=== PATIENT | male | born 1985 | race Caucasian/White ===

== ENCOUNTER 2017-07-23 16:52 | Emergency (ER) | payer OTHER ==
[~2017-07-23] VITALS: Ht 193 cm; Wt 121.3 kg
[2017-07-23 16:55] VITALS: TEMP 36.7; Ht 193 cm; Wt 121.3 kg
[2017-07-23] MEDS ORDERED: LOPERAMIDE HCL 2 MG CAP PO STA (18:13)
[2017-07-23] MEDS ORDERED: ONDANSETRON INJ 2 MG/ML 2 ML VIAL IV STA (18:13)
[2017-07-23] MEDS ORDERED: SODIUM CHLORIDE 0.9% 1000ML 1,000 ML IV STA (18:13)
--- NOTE | 2017-07-23 18:17 | EMERGENCY ROOM VISIT NOTE ---
History Report prepared by Khushi: Aurelio Rose Under the Supervision of: Dr. Pedro Robles M.D. First contact with patient: 18:07 Chief Complaint: SYNCOPE Stated Complaint: LIGHT HEADED, PASSING OUT, VOMITING Nursing Triage Summary: Pt ambulatory to triage stating he has passed out twice since yesterday. Diarrhea, vomiting. Epigastric pain. Denies previous hx of syncope. Denies cp. Mild SOB. History of Present Illness The patient is a 31 year old male who presents to the Emergency Room with complaints of multiple syncopal episodes that started yesterday morning. He states that he started having nausea, with episodes of vomiting and diarrhea that started 2 days ago. The patient says that he woke up yesterday morning for work, and around 0130, he was walking through his house and started to feel dizzy and passed out. He adds that this morning, he was walking through the parking lot going to work, and got dizzy and passed out again. The patient says that he has only passed out once before these episodes, and that was while he was in jail. He adds that he has been having a bit of upper abdominal pain. The patient denies any chest pain. He notes no known recent sick contacts with symptoms similar to these. He says that he was in jail for 2 years, so he is starting to eat real foods again, so perhaps eating hot dogs he thinks may have caused these symptoms, but he is not sure. He notes that he was seen at the [facility] yesterday, but did not have any testing done. Source of History: patient Onset: Yesterday morning Position: other (global) Symptom Intensity: twice Quality: other (syncope) Timing: other (episodes) Associated Symptoms: + LOC, + nausea, + vomiting, + abdominal pain, + diarrhea, No chest pain Note: Associated symptoms: Dizziness. Review of Systems See HPI for pertinent positives & negatives. A total of 10 systems reviewed and were otherwise negative. Past Medical & Surgical Medical Problems: (1) Arthritis Family History No pertinent family history Social History Smoking Status: Current Every Day Smoker Drug Use: none Occupation Status: employed Current/Historical Medications Scheduled Ondasetron Odt (Zofran Odt), 4 MG SL Q6H [Physiatric Med], 1 DOSE PO UD Allergies Coded Allergies: Acetaminophen (Unverified Allergy, Intermediate, ., 07/23/17) PT STATES BECAUSE OF A SURGERY HE CAN'T TAKE IT BECAUSE IT "MAKES HIM FLAIR UP" IN THE CHEST Physical Exam Vital Signs Date Time Temp Pulse Resp B/P (MAP) Pulse Ox O2 Delivery O2 Flow Rate FiO2 07/23/17 18:32 70 18 140/71 97 Room Air 07/23/17 18:25 65 07/23/17 16:55 36.7 87 20 153/100 95 Room Air Physical Exam GENERAL: Patient is in no acute distress. HEENT: No acute trauma, normocephalic atraumatic, mucous membranes moist, no nasal congestion, no scleral icterus. NECK: No stridor, no adenopathy, no meningismus, trachea is midline. LUNGS: Clear to auscultation bilaterally, no wheeze, no rhonchi, breath sounds equal. HEART: Without murmurs gallops or rubs, regular rate and rhythm. ABDOMEN: Soft, nontender, bowel sounds positive, no hernias, no peritonitis. EXTREMITIES: No cyanosis or edema, full range of motion of all the joints without pain or difficulty, no signs for acute trauma. NEUROLOGIC: Oriented x 3, no acute motor or sensory deficits, no focal weakness. SKIN: No rash, no jaundice, no diaphoresis. Medical Decision & Procedures ER Provider Diagnostic Interpretation: X-ray results as stated below per interpretation by me and the radiologist: ABDOMEN 2VIEW W/PA CHEST RTN CLINICAL HISTORY: 31 years-old Male presenting with pain, vomiting. TECHNIQUE: PA view of the chest and supine and upright views of the abdomen were obtained. COMPARISON: None. FINDINGS: Cardiomediastinal silhouette normal. Mildly prominent lung markings. No focal opacity. No large effusion or pneumothorax. Nonobstructive bowel gas pattern. No gross pneumoperitoneum. Calcification projects in the right lower quadrant, either bone island or appendicolith. No calcifications project over the kidneys or along the courses of the ureters allowing for bowel gas and stool. Osseous structures normal. IMPRESSION: 1. No acute cardiopulmonary disease. 2. No radiographic evidence of acute intra-abdominal pathology. Electronically signed by: Randy Perea M.D. 07/23/2017 8:02 PM Dictated Date/Time: 07/23/2017 8:01 PM Laboratory Results 07/23/17 18:24 Red Blood Count 5.68, Mean Corpuscular Volume 88.2, Mean Corpuscular Hemoglobin 30.6, Mean Corpuscular Hemoglobin Concent 34.7, Mean Platelet Volume 10.8, Neutrophils (%) (Auto) 65.9, Lymphocytes (%) (Auto) 21.3, Monocytes (%) (Auto) 7.1, Eosinophils (%) (Auto) 4.8, Basophils (%) (Auto) 0.6, Neutrophils # (Auto) 6.21, Lymphocytes # (Auto) 2.01, Monocytes # (Auto) 0.67, Eosinophils # (Auto) 0.45, Basophils # (Auto) 0.06 07/23/17 18:24 Test 07/23/17 18:00 07/23/17 18:24 Urine Color YELLOW Urine Appearance CLEAR (CLEAR) Urine pH 6.5 (4.5-7.5) Urine Specific Allen 1.019 (1.000-1.030) Urine Protein NEG (NEG) Urine Glucose (UA) NEG (NEG) Urine Ketones NEG (NEG) Urine Occult Blood NEG (NEG) Urine Nitrite NEG (NEG) Urine Bilirubin NEG (NEG) Urine Urobilinogen NEG (NEG) Urine Leukocyte Esterase NEG (NEG) White Blood Count 9.43 K/uL (4.8-10.8) Red Blood Count 5.68 M/uL (4.7-6.1) Hemoglobin 17.4 g/dL (14.0-18.0) Hematocrit 50.1 % (42-52) Mean Corpuscular Volume 88.2 fL (80-100) Mean Corpuscular Hemoglobin 30.6 pg (25-34) Mean Corpuscular Hemoglobin Concent 34.7 g/dl (32-36) Platelet Count 270 K/uL (130-400) Mean Platelet Volume 10.8 fL (7.4-10.4) Neutrophils (%) (Auto) 65.9 % Lymphocytes (%) (Auto) 21.3 % Monocytes (%) (Auto) 7.1 % Eosinophils (%) (Auto) 4.8 % Basophils (%) (Auto) 0.6 % Neutrophils # (Auto) 6.21 K/uL (1.4-6.5) Lymphocytes # (Auto) 2.01 K/uL (1.2-3.4) Monocytes # (Auto) 0.67 K/uL (0.11-0.59) Eosinophils # (Auto) 0.45 K/uL (0-0.5) Basophils # (Auto) 0.06 K/uL (0-0.2) RDW Standard Deviation 45.1 fL (36.4-46.3) RDW Coefficient of Variation 13.9 % (11.5-14.5) Immature Granulocyte % (Auto) 0.3 % Immature Granulocyte # (Auto) 0.03 K/uL (0.00-0.02) Anion Gap 4.0 mmol/L (3-11) Est Creatinine Clear Calc Drug Dose 138.4 ml/min Estimated GFR () 104.0 Estimated GFR (Non- 89.7 BUN/Creatinine Ratio 5.6 (10-20) Calcium Level 8.6 mg/dl (8.5-10.1) Magnesium Level 2.1 mg/dl (1.8-2.4) Total Bilirubin 0.4 mg/dl (0.2-1) Aspartate Amino Transf (AST/SGOT) 18 U/L (15-37) Alanine Aminotransferase (ALT/SGPT) 24 U/L (12-78) Alkaline Phosphatase 74 U/L (45-117) Troponin I < 0.015 ng/ml (0-0.045) Total Protein 7.1 gm/dl (6.4-8.2) Albumin 3.8 gm/dl (3.4-5.0) Globulin 3.3 gm/dl (2.5-4.0) Albumin/Globulin Ratio 1.2 (0.9-2) Thyroid Stimulating Hormone (TSH) 1.200 uIu/ml (0.300-4.500) Laboratory results reviewed by me. Medications Administered Medications (Trade) Dose Ordered Sig/Pura Route Start Time Stop Time Status Last Admin Dose Admin Ondansetron HCl (Zofran Inj) 4 mg NOW STAT IV 07/23/17 18:13 18 18:15 DC 07/23/17 18:33 4 MG Sodium Chloride 1,000 ml @ 999 mls/hr Q1H1M STAT IV 07/23/17 18:13 07/23/17 19:13 DC 07/23/17 18:34 999 MLS/HR Loperamide HCl (Imodium Cap) 4 mg NOW STAT PO 07/23/17 18:13 07/23/17 18:16 DC 07/23/17 18:33 4 MG ECG Per My Interpretation Indication: syncope Rate (beats per minute): 72 Rhythm: normal sinus Findings: no ectopy, other (no ST elevation, no PVCs) ED Course 1806: The patient was evaluated in room C4. A complete history and physical exam was performed. 1812: Imodium Cap 4 mg PO, NSS 1000 ml @ 999 mls/hr IV, Zofran Inj 4 mg IV. 1929: The patient is at x-ray. 2002: Reevaluated the patient and he is resting comfortably. Discussed results and discharge instructions: he verbalized understanding and agreement. The patient is ready for discharge. 2015: Zofran ODT 4MG Home Pack 1 homepack PO. Medical Decision Differential diagnosis includes but is not limited to dysrhythmia, vasovagal syncope, dehydration, electrolyte imbalance, viral or food borne illness. There is no leukocytosis or concerning anemia. No significant electrolyte abnormality, kidney failure or hepatitis. Obstruction series shows no pneumonia , free air or bowel obstruction. EKG shows a sinus rhythm, no acute ischemia. Cardiac enzyme testing 1 is not consistent with acute cardiac injury. On exam , the patient was not febrile or toxic, there was no peritonitis. Urinalysis does not show infection. Patient appeared to be in a euthyroid state. The patient received IV saline, IV Zofran and oral Imodium. The patient is doing well. He is comfortable. I do think he can be discharged. He is going to be using Zofran, a bland diet, rest and hydration were also encouraged. If worsening, he can return. I think this illness is likely viral or foodborne. Medication Reconcilliation Current Medication List: was personally reviewed by me Blood Pressure Screening Patient's blood pressure: Elevated blood pressure Blood pressure disposition: Elevated BP felt to be situational Impression Primary Impression: Nausea vomiting and diarrhea Additional Impression: Syncope Scribe Attestation The scribe's documentation has been prepared under my direction and personally reviewed by me in its entirety. I confirm that the note above accurately reflects all work, treatment, procedures, and medical decision making performed by me. Departure Information Dispostion Home / Self-Care Prescriptions Ondasetron Odt (ZOFRAN ODT) 4 Mg Tab 4 MG SL Q6H for Nausea, #10 TAB Prov: Pedro Robles M.D. 07/23/17 Referrals No Doctor, Assigned (PCP) Forms HOME CARE DOCUMENTATION FORM, IMPORTANT VISIT INFORMATION, Work Instructions Patient Instructions My [facility] Additional Instructions bland diet--crackers, soup, toast, gatorade, rice may use otc immodium for persisting diarrhea zofran 1 tab every 6 hours for nausea rest stay hydrated return if worsening lab testing and imaging was all ok today Problem Qualifiers Additional Impression: Syncope Syncope type: unspecified Qualified Codes: R55 - Syncope and collapse
[2017-07-23] MEDS ORDERED: [UNRECOGNIZED DRUG - REMARK] PO (18:30)
[2017-07-23 18:44] LABS: BASO % 0.6 %; BASO ABS # 0.06 K/uL (0-0.2); EOS % 4.8 %; EOS ABS # 0.45 K/uL (0-0.5); HEMATOCRIT 50.1 % (42-52); HEMOGLOBIN 17.4 g/dL (14.0-18.0); IG# 0.03 K/uL (0.00-0.02); LYMPH % 21.3 %; LYMPH ABS # 2.01 K/uL (1.2-3.4); MEAN CELL VOLUME 88.2 fL (80-100); MEAN CORPUSCULAR HEMOGLOBIN 30.6 pg (25-34); MEAN CORPUSCULAR HGB CONC 34.7 g/dl (32-36); MEAN PLATELET VOLUME 10.8 fL (7.4-10.4); MONO % 7.1 %; MONO ABS # 0.67 K/uL (0.11-0.59); NEUT % 65.9 %; NEUT ABS # 6.21 K/uL (1.4-6.5); PLATELET COUNT 270 K/uL (130-400); RED CELL DISTRIBUTION WIDTH CV 13.9 % (11.5-14.5); RED CELL DISTRIBUTION WIDTH SD 45.1 fL (36.4-46.3); WHITE BLOOD COUNT 9.43 K/uL (4.8-10.8)
[2017-07-23 19:02] LABS: ALBUMIN 3.8 gm/dl (3.4-5.0); ALT/SGPT 24 U/L (12-78); AST/SGOT 18 U/L (15-37); BLOOD UREA NITROGEN 6 mg/dl (7-18); CALCIUM 8.6 mg/dl (8.5-10.1); CARBON DIOXIDE 29 mmol/L (21-32); CREATININE 1.08 mg/dl (0.60-1.40); GLUCOSE 106 mg/dl (70-99); POTASSIUM 3.7 mmol/L (3.5-5.1); SODIUM 141 mmol/L (136-145)
[2017-07-23 19:12] LABS: ALKALINE PHOSPHATASE 74 U/L (45-117); TOTAL PROTEIN 7.1 gm/dl (6.4-8.2)
[2017-07-23] MEDS ORDERED: ONDA4TAB10 SL (19:47)
--- NOTE | 2017-07-23 20:03 | DIAGNOSTIC IMAGING REPORT ---
ABDOMEN 2VIEW W/PA CHEST RTN CLINICAL HISTORY: 31 years-old Male presenting with pain, vomiting. TECHNIQUE: PA view of the chest and supine and upright views of the abdomen were obtained. COMPARISON: None. FINDINGS: Cardiomediastinal silhouette normal. Mildly prominent lung markings. No focal opacity. No large effusion or pneumothorax. Nonobstructive bowel gas pattern. No gross pneumoperitoneum. Calcification projects in the right lower quadrant, either bone island or appendicolith. No calcifications project over the kidneys or along the courses of the ureters allowing for bowel gas and stool. Osseous structures normal. IMPRESSION: 1. No acute cardiopulmonary disease. 2. No radiographic evidence of acute intra-abdominal pathology. Electronically signed by: Randy Perea M.D. 07/23/2017 8:02 PM Dictated Date/Time: 07/23/2017 8:01 PM
[2017-07-23 20:10] VITALS: BP 133/68; PULSE 64; O2SAT 96
[2017-07-23] MEDS ORDERED: ONDANSETRON HOME PACK 4MG OD TAB PO ONE (20:15)
== END 2017-07-23 20:13 | disposition home or self-care (01) ==
LOC: C.EDB 16:54 → C.EDC 20:13
DX: R11.2 Nausea with vomiting, unspecified (principal); R19.7 Diarrhea, unspecified; R55 Syncope and collapse; F17.200 Nicotine dependence, unspecified, uncomplicated